=== PATIENT | male | born 1995 | race Caucasian/White ===

== ENCOUNTER 2020-11-12 19:01 | Emergency (ER) | payer MEDICARE, MEDICAID, SELFPAY ==
--- NOTE | ~2020-11-12 | XR_ITS ---
EXAMINATION: XR HAND, LEFT CLINICAL INFORMATION: Fall. COMPARISON: None TECHNIQUE: PA, lateral, and oblique views of the left hand. FINDINGS: The bones and soft tissues are normal. No fracture. Alignment is anatomic. Joint spaces are maintained. No erosions or soft tissue calcifications. XR/XR hand LT min 3V IMPRESSION: Normal left hand.
--- NOTE | ~2020-11-12 | XR_ITS ---
EXAMINATION: XR KNEE, LEFT CLINICAL INFORMATION: Fall. COMPARISON: None TECHNIQUE: AP and lateral views of the left knee. FINDINGS: Mild prepatellar soft tissue swelling. No fracture or joint effusion. Alignment is anatomic. Joint spaces are well maintained. No abnormal soft tissue calcification. XR/XR knee LT 2V IMPRESSION: Mild prepatellar soft tissue swelling. No acute osseous findings.
[2020-11-12 19:04] VITALS: BP 126/80; PULSE 96; RESP 18; TEMP 36.7; O2SAT 97; BMI 27.3
--- NOTE | 2020-11-12 20:16 | ED.WOUNDLAC ---
HPI - Wound/Laceration General Chief Complaint: Wound/Laceration Stated Complaint: hand injury Time Seen by Provider: 11/12/20 19:56 Source: patient Mode of arrival: ambulatory Limitations: no limitations History of Present Illness HPI narrative: 25-year-old male with no significant past medical history presents with injury sustained after a skateboarding fall. Patient has left hand and finger abrasions, and left knee abrasions and swelling. He does not report hitting his head or losing consciousness. Onset (ago): hour(s) (Within the hour of arrival) Extremity Location: left: hand and knee Place: outdoors Patient tetanus UTD: No Context: accidental Associated symptoms: pain Related Data Allergies Allergy/AdvReac Type Severity Reaction Status Date / Time No Known Allergies Allergy Verified 11/12/20 19:03 [No Known Allergies*] Review of Systems Review of Systems: Constitutional: No Fever, No Chills ENT/Mouth: No Ear Pain, No Hoarseness, No sore throat Eyes: No Eye Pain, No Swelling, No Redness, No Foreign Body Cardiovascular: No Chest Pain, No SOB Respiratory: No Cough, No Dyspnea Gastrointestinal: No Nausea, No Vomiting, No Diarrhea, No abdominal Pain Genitourinary: No Dysuria, No Hematuria Musculoskeletal: positive left hand and left knee pain, No Myalgias, No Joint Swelling Skin: Positive abrasions and laceration to left hand and left knee, No rash Neuro: No Weakness, No Numbness, No Paresthesias, No Loss of Consciousness, No Dizziness, No Headache Psych: No Anxiety/Panic, No Depression Heme/Lymph: no easy bruising, no Lymphadenopathy Endocrine: No Polyuria, No Polydipsia Yes all other systems are reviewed and are negative [facility] Past Medical History Attestation statement: The following information was validated with the patient. Source: old records reviewed Medical History No pertinent past medical history Social History Social History Advance Directives: No Advance Directives Information Provided: No Physical Exam Vital Signs: Vital Signs: Last Vital Signs Temp 98.1 F 11/12/20 19:04 Pulse 96 11/12/20 19:04 Resp 18 11/12/20 19:04 BP 126/80 11/12/20 19:04 Pulse Ox 97 11/12/20 19:04 Body Mass Index 27.3 Appearance: Alert. Oriented X3. No acute distress. Eyes: Pupils equal, round and reactive to light. Pinpoint pupils ENT: Pharynx normal. Moist mucous membranes Neck: Normal inspection. Neck supple. CVS: Normal heart rate and rhythm. Pulses normal. Respiratory: No respiratory distress. Breath sounds normal. Abdomen: Soft and nontender. Skin: Laceration to the medial aspect of the left 5th finger at the D IP, multiple superficial abrasions on fingers of the left hand and left knee. Skin warm and dry. Normal skin color. Normal skin turgor. Extremities: Full range of motion to all extremities, strength 5/5, equal pulses to all extremities, brisk capillary refill. Neuro: No motor deficit. No sensory deficit. Cranial nerves 2-12 intact. Course Course Course Narrative: 25-year-old male presents with injury sustained from a skateboarding accident. Upon my arrival into the room, patient was asleep, required sternal rub for waking and was noted to have pinpoint pupils, high suspicion for heroin or opioid abuse. When questioned, the patient became belligerent and stated that he used something but would not tell this provider what he used. Patient was offered Tdap vaccine which he refused because he stated ?I am afraid of needles?. Laceration approximately 1 cm to the medial aspect of the left 5th finger was assessed, patient declined sutures, stated to just put a Band-Aid on it. Patient is alert oriented, understands risks of declining proper care. Patient discharged home. MDM - Wound/Laceration Differential Diagnosis Differential diagnosis: Likely laceration and abrasion Imaging Data Left hand and left knee x-ray: Attestation: I personally reviewed and interpreted this imaging study as follows: Radiologist's impression: EXAMINATION: XR KNEE, LEFT CLINICAL INFORMATION: Fall.? COMPARISON: None? TECHNIQUE: AP and lateral views of the left knee. FINDINGS: Mild prepatellar soft tissue swelling. No fracture or joint effusion. Alignment is anatomic. Joint spaces are well maintained. No abnormal soft tissue calcification.? XR/XR knee LT 2V IMPRESSION: Mild prepatellar soft tissue swelling. No acute osseous findings. EXAMINATION: XR HAND, LEFT CLINICAL INFORMATION: Fall.? COMPARISON: None? TECHNIQUE: PA, lateral, and oblique views of the left hand. FINDINGS: The bones and soft tissues are normal. No fracture. Alignment is anatomic. Joint spaces are maintained. No erosions or soft tissue calcifications.? XR/XR hand LT min 3V IMPRESSION: Normal left hand. Discharge Plan Discharge Clinical Impression: Abrasion, Contusion Patient Disposition: Home, Self-Care Instructions: Abrasion (ED), Hematoma (ED) Additional Instructions: You were evaluated for injuries sustained from a skateboarding accident. X-rays are negative for fracture. Please use Raymond wrap to the left knee for comfort. Use Tylenol and Motrin as needed for pain management. You declined sutures to the left 5th finger. Stop using heroin. Heroin will kill you. Thank you for choosing this emergency department for evaluation. Please follow-up with primary care physician as needed. Return to the emergency department for any new, concerning, or worsening symptoms. Interventions: ED Discharge Assessment Last Done: 11/12/20 21:18 Discharge Date/Time: 11/12/20 21:19
--- NOTE | 2020-11-12 20:43 | PC.NURSE ---
L KNEE ABRASION CLEANED WITH SALINE, COVERED WITH NON ADHESIVE DRESSING AND WRAPPED WITH JONY BANDAGE-PER INSTRUCTION OF PROVIDER.
--- NOTE | 2020-11-12 21:05 | PC.NURSE ---
APROX 2 CM LACERATION TO LEFT HAND/5TH FINGER. PT REFUSING SUTURES. WOUND CLEANED WITH SALINE AND BACITRACIN APPLIED. FINGER WRAPPED.
--- NOTE | 2020-11-12 21:18 | PC.NURSE ---
BRISK CAP REFILL IN ALL DIGITS OF LEFT HAND.
== END 2020-11-12 21:19 | disposition home or self-care (01) ==
PROVIDERS: Emergency Provider Emergency Medicine Emergency Medical Services
DX: S61.217A Laceration without foreign body of left little finger without damage to nail, initial encounter (principal); S60.222A Contusion of left hand, initial encounter; S80.02XA Contusion of left knee, initial encounter; S60.512A Abrasion of left hand, initial encounter; S80.212A Abrasion, left knee, initial encounter; V00.131A Fall from skateboard, initial encounter; Y93.51 Activity, roller skating (inline) and skateboarding; Y92.410 Unspecified street and highway as the place of occurrence of the external cause; Y99.9 Unspecified external cause status
CPT/HCPCS: 73130; 73560; 99283